=== PATIENT | female | born 1975 | race Two or more races ===

== ENCOUNTER 2020-05-22 16:30 | Emergency (ER) | payer SELFPAY ==
[~2020-05-22] VITALS: Ht 165.1 cm; Wt 67.2 kg
[2020-05-22 17:26] LABS: BASOPHILS % (AUTO) 0 % (0-1); EOSINOPHILS % (AUTO) 0 % (1-7); LYMPHOCYTES % (AUTO) 14 % (22-44); MEAN CORPUSCULAR HGB CONC 33.8 g/dL (32.4-35.8); MEAN PLATELET VOLUME 7.8 fL (7.4-10.4); MONOCYTES % (AUTO) 6 % (2-9); NEUTROPHILS % (AUTO) 79 % (42-75); PLATELET COUNT 325 x10^3/uL (130-400); RED BLOOD COUNT 5.26 x10^6/uL (3.82-5.3); RED CELL DISTRIBUTION WIDTH 12.8 % (9.6-15.2)
--- NOTE | 2020-05-22 17:32 | NUR ---
INITIAL PT CONTACT. PT PRESENTS TO THE ED C/O VAGINAL BLEEDING X5 DAYS. PT APPROX 8 WEEKS . PT REPORTS CRAMPING ASSOCIATED WITH BLEEDING. "BLEEDING ONLY REALLY HAPPENS WHEN I GOT THE BATHROOM AND PEE, I DONT REALLY COUNT HOW MANY PADS I GO THROUGH IN AN HOUR BECAUSE I DONT WEAR ONE AT HOME." PT ACCOMPAINED BY [facility], TRANSLATION SERVICES OFFERED. PT REQUESTS [facility] FOR TRANSLATION. PT UPRIGHT ON EH, STEVEN, VSS. PT DENIES ANY NEEDS AT THIS TIME. ERP AT BEDSIDE.
--- NOTE | 2020-05-22 17:32 | NUR ---
PATIENT ROOMED FROM [facility]
[2020-05-22 17:45] LABS: MD SCAN
--- NOTE | 2020-05-22 17:50 | NUR ---
pt to us
[2020-05-22 18:10] LABS: ANION GAP 8 mmol/L (5-15); CHLORIDE 106 mmol/L (98-107)
[2020-05-22 18:11] LABS: ALBUMIN 4.1 g/dL (3.4-5.0); CALCIUM 9.5 mg/dL (8.5-10.1); CREATININE 0.77 mg/dL (0.55-1.02)
[2020-05-22 18:35] VITALS: BP 132/84
--- NOTE | 2020-05-22 18:50 | NUR ---
BEDSIDE REPORT GIVEN TO LANIE
== END 2020-05-22 19:50 | disposition home or self-care (01) ==
LOC: ED 18:39
DX: O03.4 Incomplete spontaneous abortion without complication (principal); R10.2 Pelvic and perineal pain
CPT/HCPCS: 36415; 76801; 80048; 82040; 84702; 85025; 86901; 99284